=== PATIENT | male | born 1980 | race Two or more races ===

== ENCOUNTER 2017-07-09 11:08 | Inpatient (IN) | payer OTHER ==
[~2017-07-09] VITALS: Ht 165.1 cm; Wt 79.4 kg
--- NOTE | 2017-07-09 14:30 | NUR ---
INSTRUMENT ROOM TECHNICIAN NOTES RECEIVED PATIENT ALERT, ORIENTED X3 NO SOB OR ACUTE DISTRESS NOTED. NOTED WITH GENERALIZED BODY RASH . PATIENT WITH RIGHT AC PERIPHERAL IV INTACT, PATENT. PATIENT ORIENTED ROOM AND FLOOR. CALL LIGHT WITHIN REACH. BED IN LOW LOCKED POSITION WILL CONTINUE TO MONITOR.
--- NOTE | 2017-07-09 15:00 | NUR ---
APPLICATION ENGINEER NOTES PATIENT SEEN AND EVALUATED BY DR. TIFFANI Clinton ORDERS NOTED AND CARRIED OUT.
[2017-07-09 15:30] VITALS: BP 134/92
[2017-07-09] MEDS ORDERED: FLU VACC QS 2017-18(36MOS+)/PF 0.5 ML DISP.SYRIN IM ONE (16:00)
[2017-07-09] MEDS ORDERED: ONDANSETRON HCL/PF 4 MG/2 ML VIAL IVP PRN (17:30)
[2017-07-09] MEDS ORDERED: MAGNESIUM HYDROXIDE 30 ML UDC PO PRN (17:30)
[2017-07-09] MEDS ORDERED: Z GUARD REMEDY 2 OZ OINT TP PRN (17:30)
[2017-07-09] MEDS ORDERED: MAG HYDROX/AL HYDROX/SIMETH 30 ML UDC PO PRN (17:30)
[2017-07-09] MEDS ORDERED: ZOLPIDEM TARTRATE 5 MG TABLET PO PRN (17:30)
[2017-07-09] MEDS ORDERED: LORAZEPAM 1 MG TABLET PO PRN (17:30)
[2017-07-09] MEDS ORDERED: HYDROCODONE/APAP 5/325MG 1 EACH TABLET PO PRN (17:30)
[2017-07-09] MEDS ORDERED: ACETAMINOPHEN 325 MG TABLET PO PRN (17:30)
[2017-07-09] MEDS: FOLIC ACID 1 MG TABLET PO SCH (17:56)
[2017-07-09] MEDS: IV NS 0.9% 1,000 ML IV PRN (17:59)
--- NOTE | 2017-07-09 19:25 | NUR ---
TELE/RN OPENING NOTES PT RECEIVED RESTING COMFORTABLY IN BED. A/OX4, ON ROOM AIR, BREATHING EVEN AND UNLABORED. DENIES SOB OR PAIN. ON TELE MONITOR SHOWING SINUS RHYTHM WITH HR=78. IV TO RAC PATENT AND INTACT RUNNING IVF ORDERED. BED IN LOW/LOCKED POSITION, CALL LIGHT IN REACH. SIDE RAILS UPX2. WILL CONTINUE TO MONITOR
--- NOTE | 2017-07-09 19:37 | NUR ---
ELECTRICIAN ELEVATOR MAINTENANCE NOTES PATIENT IN BED RESTING NO SOB OR ACUTE DISTRESS NOTED. ALL DUE MEDICATIONS ADMINISTERED. ALL NEEDS MET. WILL ENDORSE TO PM SHIFT MAGEN.
[2017-07-09 20:00] VITALS: BP 124/84
[2017-07-10] VITALS: BP 139/87
[2017-07-10 04:00] VITALS: BP 134/66
[2017-07-10 06:00] VITALS: BP 136/93
[2017-07-10] MEDS: IV NS 0.9% 1,000 ML IV PRN ×2 (06:11→10:09)
--- NOTE | 2017-07-10 07:52 | NUR ---
TELE/RN CLOSING NOTES PT AWAKE, A/OX4, ON ROOM AIR, BREATHING EVEN AND UNLABORED. NO APPARENT DISTRESS NOTED. DENIES PAIN AND SOB. SPEECH REMAINS STUTTERED AND SLURRED. ON TELE MONITOR SHOWING SINUS RHYTHM WITH HR IN THE 80S. MADE PT COMFORTABLE DURING SHIFT. TREMORS HAVE DECREASED POST ADMINISTRATION OF ATIVAN. CALL LIGHT IN REACH. SIDE RAILS UPX2. BED IN LOW/LOCKED POSITION. ALL NEED MET. ENDORSED TO AM SHIFT MAGEN.
[2017-07-10 08:00] VITALS: BP 136/93
--- NOTE | 2017-07-10 08:00 | NUR ---
RN NOTES ON BED AWAKE, ALERT AND ORIENTED. NOT IN ANY FORM OF DISTRESS. NO HAND TREMOR NOTED. NO SWEAT OR HEADACHE. STILL WITH STUTTERING OR UNCLEAR SPEECH. AMBULATE USING FWW. NO OTHER COMPLAIN AT THIS TIME. REMINDED ABOUT SAFETY PRECAUTION. CALL LIGHT PLACED WITHIN REACH.
[2017-07-10 08:21] LABS: ALBUMIN 3.4 g/dL (3.4-5.0); BILIRUBIN,TOTAL 1.3 mg/dL (0.2-1.0); CALCIUM, SERUM 8.7 mg/dL (8.5-10.1); CREATININE 0.8 mg/dL (0.6-1.3); MAGNESIUM 1.8 mg/dL (1.8-2.4); PHOSPHORUS 3.5 mg/dL (2.5-4.9); POTASSIUM 3.4 mmol/L (3.5-5.1)
[2017-07-10 08:26] LABS: THYROID STIMULATING HORMONE 1.328 uIU/mL (0.358-3.74)
[2017-07-10 08:31] LABS: BASOPHILS % (AUTO) 0.6 % (0.0-2.0); EOSINOPHILS # (AUTO) 0.2 /CMM (0.0-0.7); EOSINOPHILS % (AUTO) 4.4 % (0.0-6.0); HEMATOCRIT 43 % (39-51); HEMOGLOBIN 14.9 g/dL (13.5-17.5); LYMPHOCYTES # (AUTO) 1.7 /CMM (0.8-4.8); LYMPHOCYTES % (AUTO) 34.3 % (20.0-44.0); MEAN CORPUSCULAR HEMOGLOBIN 31 PG (26.0-33.0); MEAN CORPUSCULAR HGB CONC 34 g/dl (31.0-36.0); MEAN CORPUSCULAR VOLUME 90 fL (80-96); MONOCYTES # (AUTO) 0.4 /CMM (0.1-1.30); MONOCYTES % (AUTO) 8.2 % (2.0-12.0); NEUTROPHILS # (AUTO) 2.7 /CMM (1.8-8.9); NEUTROPHILS % (AUTO) 52.5 % (43.0-81.0); PLATELET COUNT (AUTO) 107 /CMM (150-450); RDW COEFFICIENT OF VARIATION 13.9 (11.5-15.0); RED BLOOD CELL COUNT(AUTO) 4.81 MIL/uL (4.5-6.0); WHITE BLOOD COUNT (AUTO) 5.1 K/uL (4.3-11.0)
[2017-07-10] MEDS ORDERED: THIAMINE HCL 100 MG TABLET PO SCH (09:00)
[2017-07-10] MEDS: FOLIC ACID 1 MG TABLET PO SCH (09:51)
--- NOTE | 2017-07-10 10:41 | NUR ---
Social service consult for alcohol abuse. Pt. is a 37 year old male who was admitted to [facility] for Alcohol withdrawal. SW met with pt. bedside and his dad was waiting outside his room. Pt. is alert and oriented x 4. Pt. was sitting in his chair watching TV. Pt. appears disheveled but was friendly and cooperative with SW during the assessment. Pt. states he resides with is father. Pt. was sober for 4 months and had a relapse. When [facility]Y asked pt. what led to the relapse, pt. stated, " I thought I could have just one beer but I couldn't stop there." Pt. drinks 12 packs of beer per day. Pt. has been drinking for the past three years. Pt. is unemployed and has no source of income at this time. Pt. is single and has no children. Pt. has not been to any alcohol treatment programs or AA meetings in the past. REMY offered pt. substance abuse referrals and referral to AA meetings. Pt. accepted the referrals. REMY encouraged pt. to attend a detox or an inpatient alcohol treatment program. No other social service needs are requested at this time. SW is available if needed.
--- NOTE | 2017-07-10 11:27 | NUR ---
WOUND CARE CONSULT: PT STATES HAS HX OF ECZEMA. PT NOTED TO HAVE PATCHY ECZEMA ON ELBOWS BUT ALSO NOTED TO HAVE BUMPY RASH TO LEGS AND BACK UNKNOWN ETIOLOGY. DEFER TO MD. PT IS AMBULATORY AND CONTINENT. SPEECH IS SLURRED. WILL SEE PRN. Addendum: 07/10/17 at 1130 by TEMI AGUILAR WNDNU CURRENT EDDI SCORE IS 19.
[2017-07-10] MEDS ORDERED: POTASSIUM CHLORIDE 20 MEQ TAB.PRT.SR PO SCH (11:30)
--- NOTE | 2017-07-10 17:00 | NUR ---
RN NOTES DISCHARGE INSTRUCTION GIVEN ON HOME MEDICATION AND FOLLOW UP WITH PRIMARY CARE PHYSICIAN VERBALIZED UNDERSTANDING. DISCHARGE PAPER SIGNED. IV ACCESS REMOVED. CLAIMED NO BELONGINGS MISSING. LEFT HOSPITAL VIA WHEELCHAIR INSTABLE CONDITION. STUTTERING IMPROVED SIGNIFICANTLY, NO RESTING TREMORS, STILL WITH UNSTEADY GAIT. REMINDED ON SAFETY PRECAUTION. ASSISTED TO THE FRONT LOBBY. PATIENT THANKFUL OF THE CARE.
== END 2017-07-10 16:56 | disposition home or self-care (01) | DRG 775 ==
LOC: TELE 15:15 → MED 07-10 08:38
DX: F10.239 Alcohol dependence with withdrawal, unspecified (principal); F41.9 Anxiety disorder, unspecified; Y90.9 Presence of alcohol in blood, level not specified
CPT/HCPCS: 36415; 80053-TC; 80061-TC; 82746; 83735-TC; 84100-TC; 84443-TC; 85025-TC; 87081-TC; J7030; Q2036